=== PATIENT | male | born 1965 | race Caucasian/White ===

== ENCOUNTER 2017-09-18 03:17 | Emergency (ER) | payer BC ==
[~2017-09-18] VITALS: Ht 170.2 cm; Wt 85.0 kg
[~2017-09-18 03:17] MED LIST: CIPRO500 MG OR; CO Q 1030 MG PO; FLAGYL500 MG OR; HYDROCHLOROT25 MG PO; LORTAB 5 OR; LORTAB5 OR; SEA-OMEGA500 MG PO
[2017-09-18] MEDS ORDERED: AMLODIPINE5 MG PO (03:24)
[2017-09-18] MEDS ORDERED: LOSARTAN POT25 MG PO (03:24)
[2017-09-18] MEDS ORDERED: FISH OIL1000 MG PO (03:25)
[2017-09-18] MEDS ORDERED: MOTRIN200 MG PO (03:25)
[2017-09-18 04:04] LABS: HEMATOCRIT 40.6 % (39.0-50.0); HEMOGLOBIN 13.9 g/dl (14.0-18.0); IMMATURE GRANULOCYTES 0.3 % (0.0-1.0); MEAN CELL VOLUME 92.7 fL CALC (80.0-100.0); MEAN CORPUSCULAR HGB 31.7 pG CALC (26.0-32.0); MEAN CORPUSCULAR HGB CONC 34.2 g/L CALC (32.0-36.0); NEUT# 5.69 thou/uL (1.82-7.42); RED BLOOD COUNT 4.38 mill/uL (4.70-6.10); RED CELL DISTRI WIDTH 11.9 % (11.5-15.5)
[2017-09-18 04:11] LABS: ALKALINE PHOSPHATASE 79 u/l (38-126); AMYLASE 119 u/l (30-110); BUN 27 mg/dL (9-20); BUN/CREATININE RATIO 19 (12-20 (CALC)); CARBON DIOXIDE 29 mmol/l (22-30); CHLORIDE 103 mmol/l (95-108); CREATININE 1.4 mg/dL (0.7-1.3); GFR 53 ML/MIN (>=60 (CALC)); GFR FOR AFR.AMER. > 60 ML/MIN (>=60 (CALC)); LIPASE 243 u/l (23-300); SGOT/AST 20 u/l (17-59); SGPT/ALT 36 u/l (21-72); SODIUM 141 mmol/l (137-146)
[2017-09-18 04:12] LABS: ALBUMIN 4.7 g/dL (3.2-5.0); ANION GAP 14 (6-22 (CALC)); POTASSIUM 4.7 mmol/l (3.5-5.1); TOTAL PROTEIN 7.9 g/dL (6.3-8.2)
[2017-09-18 06:04] LABS: URINE BILIRUBIN - DIPSTICK NEGATIVE (NEGATIVE); URINE BLOOD DIPSTICK LARGE (NEGATIVE); URINE COLOR YELLOW; URINE GLUCOSE - DIPSTICK NEGATIVE (NEGATIVE); URINE KETONE NEGATIVE (NEGATIVE); URINE LEUK ESTERASE TRACE (NEGATIVE); URINE NITRITE - DIPSTICK NEGATIVE (Negative); URINE PROTEIN - DIPSTICK NEGATIVE (NEG-TRACE); URINE SPECIFIC GRAVITY 1.015; URINE UROBILINOGEN - DIPSTICK 0.2 E.U./dL (0.2)
[2017-09-18 06:09] LABS: URINE CLARITY CLOUDY
[2017-09-18 06:10] LABS: URINE BACTERIA FEW hpf; URINE RBC 50-100 RBC/hpf (0-5); URINE RED BLOOD CELL CAST FEW lpf; URINE SQUAMOUS EPITHELIAL CELL FEW EPI/hpf (0-FEW)
[2017-09-18] MEDS ORDERED: MIRALAX3350 N1 PO (06:12)
[2017-09-18] MEDS ORDERED: LORTAB 1010 MG PO (06:12)
[2017-09-18] MEDS ORDERED: CIPROFLOXACN500 MG PO (06:13)
[2017-09-18 06:29] VITALS: BP 139/71
== END 2017-09-18 06:30 | disposition home or self-care (01) | DRG 690 ==
LOC: ED 03:17
PROVIDERS: Emergency Medicine
DX: N39.0 Urinary tract infection, site not specified (principal); N20.0 Calculus of kidney; K59.00 Constipation, unspecified; I10 Essential (primary) hypertension

== ENCOUNTER 2017-10-26 01:35 | Inpatient (IN) | payer BC ==
[~2017-10-26] VITALS: Ht 170.2 cm; Wt 85.4 kg
[~2017-10-26 01:35] MED LIST changes: +AMLODIPINE5 MG PO; +CIPROFLOXACN500 MG PO; +FISH OIL1000 MG PO; +LORTAB 1010 MG PO; +LOSARTAN POT25 MG PO; +MIRALAX3350 N1 PO; +MOTRIN200 MG PO
[2017-10-26 02:30] LABS: HEMATOCRIT 36.7 % (39.0-50.0); HEMOGLOBIN 12.9 g/dl (14.0-18.0); IMMATURE GRANULOCYTES 0.5 % (0.0-5.0); MEAN CELL VOLUME 90.2 fL CALC (80.0-100.0); MEAN CORPUSCULAR HGB 31.7 pG CALC (26.0-32.0); MEAN CORPUSCULAR HGB CONC 35.1 g/L CALC (32.0-36.0); NEUT# 10.7 thou/uL (1.82-7.42); RED BLOOD COUNT 4.07 mill/uL (4.70-6.10); RED CELL DISTRI WIDTH 11.8 % (11.5-15.5)
[2017-10-26 02:41] LABS: ALBUMIN 4.7 g/dL (3.2-5.0); ALKALINE PHOSPHATASE 79 u/l (38-126); ANION GAP 17 (6-22 (CALC)); BILIRUBIN, TOTAL 0.9 mg/dL (0.0-1.4); BUN 26 mg/dL (9-20); BUN/CREATININE RATIO 18 (12-20 (CALC)); CARBON DIOXIDE 26 mmol/l (22-30); CHLORIDE 101 mmol/l (95-108); CREATININE 1.4 mg/dL (0.7-1.3); GFR 53 ML/MIN (>=60 (CALC)); GFR FOR AFR.AMER. > 60 ML/MIN (>=60 (CALC)); POTASSIUM 3.9 mmol/l (3.5-5.1); SGOT/AST 22 u/l (17-59); SGPT/ALT 31 u/l (21-72); SODIUM 140 mmol/l (137-146); TOTAL PROTEIN 7.6 g/dL (6.3-8.2)
[2017-10-26 03:04] LABS: URINE BILIRUBIN - DIPSTICK NEGATIVE (NEGATIVE); URINE BLOOD DIPSTICK LARGE (NEGATIVE); URINE CLARITY CLEAR; URINE COLOR YELLOW; URINE GLUCOSE - DIPSTICK NEGATIVE (NEGATIVE); URINE KETONE NEGATIVE (NEGATIVE); URINE LEUK ESTERASE NEGATIVE (NEGATIVE); URINE NITRITE - DIPSTICK NEGATIVE (Negative); URINE PROTEIN - DIPSTICK NEGATIVE (NEG-TRACE); URINE SPECIFIC GRAVITY 1.025; URINE UROBILINOGEN - DIPSTICK 0.2 E.U./dL (0.2)
[2017-10-26 03:12] LABS: URINE WBC 0-2 WBC/hpf (0-5)
[2017-10-26 08:12] VITALS: BP 124/66
[2017-10-26 11:21] VITALS: BP 108/64
[2017-10-26 15:18] VITALS: BP 113/61
[2017-10-26 20:07] VITALS: BP 133/67
[2017-10-27 04:29] VITALS: BP 124/70
[2017-10-27 05:37] LABS: HEMATOCRIT 36.5 % (39.0-50.0); HEMOGLOBIN 12.6 g/dl (14.0-18.0); IMMATURE GRANULOCYTES 0.2 % (0.0-5.0); MEAN CELL VOLUME 91.5 fL CALC (80.0-100.0); MEAN CORPUSCULAR HGB 31.6 pG CALC (26.0-32.0); MEAN CORPUSCULAR HGB CONC 34.5 g/L CALC (32.0-36.0); NEUT# 7.06 thou/uL (1.82-7.42); RED BLOOD COUNT 3.99 mill/uL (4.70-6.10); RED CELL DISTRI WIDTH 11.9 % (11.5-15.5)
[2017-10-27 05:43] LABS: CREATININE 2.1 mg/dL (0.7-1.3); POTASSIUM 4.3 mmol/l (3.5-5.1)
[2017-10-27] MEDS ORDERED: OXYBUTYNIN5 M1 PO (09:00)
[2017-10-27] MEDS ORDERED: AZO TABS95 MG PO (09:00)
[2017-10-27] MEDS ORDERED: GABAPENTIN300 M2 PO (09:00)
[2017-10-27] MEDS ORDERED: KEFLEX500 M1 PO (09:00)
[2017-10-27 09:30] VITALS: BP 161/78
[2017-10-27 09:45] VITALS: BP 125/66
[2017-10-27 09:55] VITALS: BP 124/72
[2017-10-27] MEDS ORDERED: LORTAB 1010 MG PO (09:55)
[2017-10-27 10:10] VITALS: BP 115/58
[2017-10-27 10:40] VITALS: BP 123/62
== END 2017-10-27 12:15 | disposition home or self-care (01) | DRG 694 ==
LOC: ED 01:35 → ED-I 01:47 → ED 07:14 → MS2 07:15
PROVIDERS: Family Medicine; ADMIT General Practice; ATTEND General Practice
PROC: 0T768DZ Dilation of Right Ureter with Intraluminal Device, Via Natural or Artificial Opening Endoscopic (ICD-10-PCS; principal; 2017-10-27)
PROC: BT1DYZZ Fluoroscopy of Right Kidney, Ureter and Bladder using Other Contrast (ICD-10-PCS; 2017-10-27)
DX: N13.2 Hydronephrosis with renal and ureteral calculous obstruction (principal); I10 Essential (primary) hypertension; Z87.442 Personal history of urinary calculi; Z87.891 Personal history of nicotine dependence
CPT/HCPCS: Q9967

== ENCOUNTER 2017-11-20 05:47 | Day surgery (SDC) | payer BC ==
[~2017-11-20] VITALS: Ht 170.2 cm; Wt 82.1 kg
[~2017-11-20 05:47] MED LIST changes: +AZO TABS95 MG PO; +GABAPENTIN300 M2 PO; +KEFLEX500 M1 PO; +OMEGA 31000 MG PO; +OXYBUTYNIN5 M1 PO
[2017-11-20 09:16] VITALS: BP 119/62
== END 2017-11-20 09:30 | disposition home or self-care (01) | DRG 669 ==
LOC: ORM 05:47
PROVIDERS: ATTEND Urology
PROC: 0TC68ZZ Extirpation of Matter from Right Ureter, Via Natural or Artificial Opening Endoscopic (ICD-10-PCS; principal; 2017-11-20)
PROC: 0T768DZ Dilation of Right Ureter with Intraluminal Device, Via Natural or Artificial Opening Endoscopic (ICD-10-PCS; 2017-11-20)
DX: N13.2 Hydronephrosis with renal and ureteral calculous obstruction (principal); I10 Essential (primary) hypertension
CPT/HCPCS: J1100; Q9967

== ENCOUNTER 2022-05-17 16:39 | Emergency (ER) | payer BC ==
[~2022-05-17] VITALS: Ht 170.2 cm; Wt 90.0 kg
[2022-05-17] VITALS (8 sets, daily range): BP systolic 140–160; BP diastolic 78–90
[2022-05-17] MEDS ORDERED: ALLOPURINOL100 MG PO (17:10)
[2022-05-17 19:00] LABS: ALBUMIN 4.7 g/dL (3.2-5.0); ALKALINE PHOSPHATASE 80 u/l (38-126); ANION GAP 13 (6-22 (CALC)); BILIRUBIN, TOTAL 1.3 mg/dL (0.2-1.3); BUN 25 mg/dL (9-20); BUN/CREATININE RATIO 18 (12-20 (CALC)); CARBON DIOXIDE 26 mmol/l (22-30); CHLORIDE 103 mmol/l (95-108); CREATININE 1.4 mg/dL (0.7-1.3); GFR FOR AFR.AMER. > 60 ML/MIN (>=60 (CALC)); GFR OTHER RACES 52 ML/MIN (>=60 (CALC)); POTASSIUM 4.2 mmol/l (3.5-5.1); SODIUM 137 mmol/l (137-146); TOTAL PROTEIN 7.6 g/dL (6.3-8.2)
[2022-05-17 19:01] LABS: SGOT/AST 41 u/l (17-59)
[2022-05-17 19:13] LABS: BASO% 0.4 % (0-3); EOS% 1.6 % (0-8); HEMATOCRIT 39.5 % (39.0-50.0); HEMOGLOBIN 13.5 g/dl (14.0-18.0); IMMATURE GRANULOCYTES 0.9 % (0.0-5.0); LYMPH% 25.9 % (15-41); MEAN CELL VOLUME 94.7 fL CALC (80.0-100.0); MEAN CORPUSCULAR HGB 32.4 pG CALC (26.0-32.0); MEAN CORPUSCULAR HGB CONC 34.2 g/dL CAL (32.0-36.0); MONO% 8.8 % (2-13); NEUT# 4.96 thou/uL (1.82-7.42); NEUT% 62.4 % (42-76); RED BLOOD COUNT 4.17 mill/uL (4.70-6.10); RED CELL DISTRI WIDTH 11.9 % (11.5-15.5)
[2022-05-17 20:05] LABS: URINE BILIRUBIN - DIPSTICK NEGATIVE (NEGATIVE); URINE BLOOD DIPSTICK NEGATIVE (NEGATIVE); URINE COLOR YELLOW; URINE GLUCOSE - DIPSTICK NEGATIVE (NEGATIVE); URINE KETONE NEGATIVE (NEGATIVE); URINE LEUK ESTERASE NEGATIVE (NEGATIVE); URINE PH 5.5 (4.5-8.0); URINE PROTEIN - DIPSTICK NEGATIVE (NEG-TRACE); URINE SPECIFIC GRAVITY 1.025; URINE UROBILINOGEN - DIPSTICK 0.2 E.U./dL (0.2)
[2022-05-17 20:06] LABS: URINE NITRITE - DIPSTICK NEGATIVE (Negative)
== END 2022-05-17 20:00 | disposition home or self-care (01) | DRG 684 ==
LOC: ED 16:39
PROVIDERS: Emergency Medicine; Family Medicine
DX: N17.9 Acute kidney failure, unspecified (principal); I10 Essential (primary) hypertension